=== PATIENT | female | born 2000 | race African-American/Black ===

== ENCOUNTER 2022-11-21 12:01 | Inpatient (IN) ==
--- NOTE | 2022-11-21 12:03 | Emergency Department Note ---
Impression & Plan Depression with suicidal ideation, History of bipolar disorder ED Provider Note NAME: WADE BRIAN AGE: 22 SEX: F : 2000 ARRIVES VIA: Ambulance INFORMANT: Patient, ED PROVIDER(S): Napoleon Kohler MD CHIEF COMPLAINT: Suicidal ideation, depression MEDICAL DECISION MAKING: Patient presents due to concern for suicidal ideation with associated depression has known history of bipolar disorder. Patient states that she feels very tired and had contemplated overdosing on her own medications. Blood work is obtained. The patient was seen medically cleared seen evaluated by psych rn case management and referrals were made. Patient was excepted to 3 S. Prior /Outside records reviewed: Patient did have a gastrointestinal visit with Ruby Taylor PA-C & . Case from February 2022 PDMP was reviewed and showed no controlled substances. Differential diagnosis: Mood disorder, infection, hypoglycemia, electrolyte abnormalities, cardiac sources, intracerebral event, toxicologic, trauma, neurologic, as well as other pathologies. HPI: Patient presents with suicidal ideation. The patient states that she believes this may have been sparked by some visual hallucinations as she is seeing things in her periphery. Nothing that she can describe. Patient denies any auditory hallucinations. Patient has had SI with a plan to overdose on her home meds. The patient did take her medications this morning but denies any inappropriate taking them. Patient does feel tired but states that her sleep has been normal. The patient's appetite has been slightly decreased but has a known history of eating disorder but states this has been improving. Patient is a [employer] student she states that her classes are going well. Patient did not feel safe this home this morning and thus called crisis from her car. Patient denies any chest pains or shortness of breath. Patient denies any alcohol or tobacco use. No drug use. Patient has no access to guns or weapons. The patient has never been inpatient before but would consider inpatient treatment PAST MEDICAL HISTORY: See Below PAST SURGICAL HISTORY: See Below SOCIAL HISTORY: See Below HOME MEDICATIONS: See Below ALLERGIES: See Below VITALS: See Below PHYSICAL EXAMINATION: GENERAL: NAD, wearing a mask, non-toxic. Wearing glasses EYE EXAM: Normal conjunctiva. PERRL, no anisocoria and EOM's grossly intact w/o pain. NECK: Supple, no nuchal rigidity, no adenopathy, non-tender. No signs of meningismus. FROM of the neck with good chin to chest and neck extension. No stridor. LUNGS: Clear to auscultation. Normal chest wall mechanics. HEART: NSR, no MRG. ABDOMEN: Abdomen soft, non-tender, normo-active bowel sounds, no masses, no rebound or guarding. BACK: No CVA TTP. SKIN: No rashes and no bruising. UPPER EXTREMITIES: Upper extremities are grossly normal. LOWER EXTREMITIES: Grossly normal, no edema. NEURO EXAM: A&O x3, cranial nerves II-XII grossly intact, normal speech, moves all 4 extremities. Psych: Positive SI, negative HI, positive visual hallucinations, negative auditory hallucinations. Past Med/Surg History Medical History Bipolar disorder Eating disorder Surgical History S/P tonsillectomy Social History Smoking Status: Never smoker Hx Substance Use: Yes ([facility] [place]) Preferred Language: Vietnamese Feels Safe at Home: Yes Gender Identity: Female Allergies Allergies Allergy/AdvReac Type Severity Reaction Status Date / Time No Known Allergies Allergy Verified 10/03/22 03:09 Home Meds Home Medications Medication Instructions Recorded Confirmed buspirone 30 mg tablet 30 mg PO BID 02/22/22 11/21/22 levonorgestrel 17.5 mcg/24 hrs 17.5 mcg intrauterine CONTINOUS 02/22/22 11/21/22 (5yrs) 19.5mg intrauterine device (Kyleena) sumatriptan succinate 25 mg tablet 25 mg PO Q2H PRN Migraine Headache 02/22/22 11/21/22 (Imitrex) lamotrigine 200 mg tablet 200 mg PO BID 10/03/22 11/21/22 Lexapro 10 mg PO DAILY 11/21/22 11/21/22 Results & Data (ED) Vital Signs Vital Signs - 24 hr 11/21/22 12:17 Temperature 36.8 C Temperature Source Oral Pulse Rate 100 H Respiratory Rate 20 Respiratory Effort / Characteristics Non-Labored Respiratory Depth Normal Blood Pressure 138/89 Blood Pressure Mean 105 Pulse Oximetry 98 Oxygen Delivery Method Room Air Sepsis Recent Fever Within 48 Hours No Sepsis New/Unexplained Change in Mental Status N/A Sepsis Action Taken by Nursing No Action Required Home Medications Current Medication List: was personally reviewed by me Laboratory Data Attestation: I reviewed the patient's lab results. 11/21/22 12:20 11/21/22 12:20 Lab Results 11/21/22 11/21/22 11/21/22 Range/Units 12:20 12:20 12:20 WBC 9.16 (4.8-10.8) K/ul RBC 4.76 (4.20-5.40) M/uL Hgb 13.8 (12.0-16.0) g/dl Hct 41.8 (37.0-47.0) % MCV 87.8 (80.0-100.0) fL MCH 29.0 (25.0-34.0) pg MCHC 33.0 (32.0-36.0) g/dL RDW Std Deviation 41.9 (36.4-46.3) fL RDW Coeff of Brissa 12.9 (11.5-14.5) % Plt Count 283 (130-400) K/uL MPV 10.0 (9.4-12.4) fL Immature Gran % (Auto) 0.3 % Neut % (Auto) 72.5 % Lymph % (Auto) 19.1 % Chase % (Auto) 6.8 % Eos % (Auto) 0.9 % Baso % (Auto) 0.4 % Neut # (Auto) 6.64 H (1.40-6.50) K/uL Lymph # (Auto) 1.75 (1.2-3.4) K/uL Chase # (Auto) 0.62 H (0.11-0.59) K/uL Eos # (Auto) 0.08 (0-0.50) K/uL Baso # (Auto) 0.04 (0-0.2) K/uL Immature Gran # (Auto) 0.03 (0.01-0.20) K/uL Sodium 140 (136-145) mmol/L Potassium 3.6 (3.5-5.1) mmol/L Chloride 106 (98-107) mmol/L Carbon Dioxide 28 (21-32) mmol/L Anion Gap 6 (3-11) BUN 8 (6-23) mg/dl Creatinine 0.71 (0.6-1.2) mg/dl Est Cr Clr Drug Dosing 100.9 ml/min Est GFR ( Amer) 140.1 ml/min Est GFR (Non-Af Amer) 120.9 ml/min BUN/Creatinine Ratio 11.3 (10-20) Glucose 81 (70-99(Fasting)) mg/dl Calcium 9.8 (8.5-10.1) mg/dl Total Bilirubin 0.8 (0.2-1.0) mg/dl AST 18 (13-39) U/L ALT 11 (7-52) U/L Alkaline Phosphatase 66 (34-104) U/L Total Protein 8.3 (6.0-8.3) gm/dl Albumin 4.8 (3.4-5.0) gm/dl Globulin 3.5 (2.5-4.0) gm/dl Albumin/Globulin Ratio 1.4 (0.9-2) TSH 2.232 (0.300-4.500) uIu/ml Urine Color Urine Appearance (Clear) Urine pH (4.5-7.5) Ur Specific Stanley (1.000-1.030) Urine Protein (Negative) Urine Glucose (UA) (Negative) Urine Ketones (Negative) Urine Blood (Negative) Urine Nitrite (Negative) Urine Bilirubin (Negative) Urine Urobilinogen (Negative) Ur Leukocyte Esterase (Negative) Urine WBC (Auto) (0-5) /hpf Urine RBC (Auto) (0-4) /hpf U Hyaline Cast (Auto) (0-5) /lpf U Epithel Cells (Auto) (0-5) /lpf Urine Bacteria (Auto) (Negative) Urine Test (Negative) Salicylates (3.0-30) mg/dl Urine Opiates Screen (Neg) Ur Methadone, Qual (Neg) Acetaminophen (10-30) ug/ml Urine Barbiturates (Neg) Ur Phencyclidine (PCP) (Neg) U Amphetamin/Meth Scrn (Neg) MDMA (Ecstasy) Screen (Neg) U Benzodiazepines Scrn (Neg) Ur Cocaine Metabolite (Neg) U Marijuana (THC) Screen (Neg) Ethyl Alcohol mg/dL (<10.0) mg/dl SARS-CoV-2, RNA, NAAT (NEGATIVE) 11/21/22 11/21/22 11/21/22 Range/Units 12:20 12:20 12:20 WBC (4.8-10.8) K/ul RBC (4.20-5.40) M/uL Hgb (12.0-16.0) g/dl Hct (37.0-47.0) % MCV (80.0-100.0) fL MCH (25.0-34.0) pg MCHC (32.0-36.0) g/dL RDW Std Deviation (36.4-46.3) fL RDW Coeff of Brissa (11.5-14.5) % Plt Count (130-400) K/uL MPV (9.4-12.4) fL Immature Gran % (Auto) % Neut % (Auto) % Lymph % (Auto) % Chase % (Auto) % Eos % (Auto) % Baso % (Auto) % Neut # (Auto) (1.40-6.50) K/uL Lymph # (Auto) (1.2-3.4) K/uL Chase # (Auto) (0.11-0.59) K/uL Eos # (Auto) (0-0.50) K/uL Baso # (Auto) (0-0.2) K/uL Immature Gran # (Auto) (0.01-0.20) K/uL Sodium (136-145) mmol/L Potassium (3.5-5.1) mmol/L Chloride (98-107) mmol/L Carbon Dioxide (21-32) mmol/L Anion Gap (3-11) BUN (6-23) mg/dl Creatinine (0.6-1.2) mg/dl Est Cr Clr Drug Dosing ml/min Est GFR ( Amer) ml/min Est GFR (Non-Af Amer) ml/min BUN/Creatinine Ratio (10-20) Glucose (70-99(Fasting)) mg/dl Calcium (8.5-10.1) mg/dl Total Bilirubin (0.2-1.0) mg/dl AST (13-39) U/L ALT (7-52) U/L Alkaline Phosphatase (34-104) U/L Total Protein (6.0-8.3) gm/dl Albumin (3.4-5.0) gm/dl Globulin (2.5-4.0) gm/dl Albumin/Globulin Ratio (0.9-2) TSH (0.300-4.500) uIu/ml Urine Color Yellow Urine Appearance Clear (Clear) Urine pH 8.0 H (4.5-7.5) Ur Specific Stanley 1.007 (1.000-1.030) Urine Protein Negative (Negative) Urine Glucose (UA) Negative (Negative) Urine Ketones Negative (Negative) Urine Blood Trace H (Negative) Urine Nitrite Negative (Negative) Urine Bilirubin Negative (Negative) Urine Urobilinogen Negative (Negative) Ur Leukocyte Esterase Trace H (Negative) Urine WBC (Auto) 1-5 (0-5) /hpf Urine RBC (Auto) 0-4 (0-4) /hpf U Hyaline Cast (Auto) 1-5 (0-5) /lpf U Epithel Cells (Auto) >30 H (0-5) /lpf Urine Bacteria (Auto) 1+ H (Negative) Urine Test (Negative) Salicylates < 3.0 L (3.0-30) mg/dl Urine Opiates Screen (Neg) Ur Methadone, Qual (Neg) Acetaminophen < 3 L (10-30) ug/ml Urine Barbiturates (Neg) Ur Phencyclidine (PCP) (Neg) U Amphetamin/Meth Scrn (Neg) MDMA (Ecstasy) Screen (Neg) U Benzodiazepines Scrn (Neg) Ur Cocaine Metabolite (Neg) U Marijuana (THC) Screen (Neg) Ethyl Alcohol mg/dL < 10.0 (<10.0) mg/dl SARS-CoV-2, RNA, NAAT (NEGATIVE) 11/21/22 11/21/22 11/21/22 Range/Units 12:20 12:20 12:31 WBC (4.8-10.8) K/ul RBC (4.20-5.40) M/uL Hgb (12.0-16.0) g/dl Hct (37.0-47.0) % MCV (80.0-100.0) fL MCH (25.0-34.0) pg MCHC (32.0-36.0) g/dL RDW Std Deviation (36.4-46.3) fL RDW Coeff of Brissa (11.5-14.5) % Plt Count (130-400) K/uL MPV (9.4-12.4) fL Immature Gran % (Auto) % Neut % (Auto) % Lymph % (Auto) % Chase % (Auto) % Eos % (Auto) % Baso % (Auto) % Neut # (Auto) (1.40-6.50) K/uL Lymph # (Auto) (1.2-3.4) K/uL Chase # (Auto) (0.11-0.59) K/uL Eos # (Auto) (0-0.50) K/uL Baso # (Auto) (0-0.2) K/uL Immature Gran # (Auto) (0.01-0.20) K/uL Sodium (136-145) mmol/L Potassium (3.5-5.1) mmol/L Chloride (98-107) mmol/L Carbon Dioxide (21-32) mmol/L Anion Gap (3-11) BUN (6-23) mg/dl Creatinine (0.6-1.2) mg/dl Est Cr Clr Drug Dosing ml/min Est GFR ( Amer) ml/min Est GFR (Non-Af Amer) ml/min BUN/Creatinine Ratio (10-20) Glucose (70-99(Fasting)) mg/dl Calcium (8.5-10.1) mg/dl Total Bilirubin (0.2-1.0) mg/dl AST (13-39) U/L ALT (7-52) U/L Alkaline Phosphatase (34-104) U/L Total Protein (6.0-8.3) gm/dl Albumin (3.4-5.0) gm/dl Globulin (2.5-4.0) gm/dl Albumin/Globulin Ratio (0.9-2) TSH (0.300-4.500) uIu/ml Urine Color Urine Appearance (Clear) Urine pH (4.5-7.5) Ur Specific Stanley (1.000-1.030) Urine Protein (Negative) Urine Glucose (UA) (Negative) Urine Ketones (Negative) Urine Blood (Negative) Urine Nitrite (Negative) Urine Bilirubin (Negative) Urine Urobilinogen (Negative) Ur Leukocyte Esterase (Negative) Urine WBC (Auto) (0-5) /hpf Urine RBC (Auto) (0-4) /hpf U Hyaline Cast (Auto) (0-5) /lpf U Epithel Cells (Auto) (0-5) /lpf Urine Bacteria (Auto) (Negative) Urine Test Negative (Negative) Salicylates (3.0-30) mg/dl Urine Opiates Screen Neg (Neg) Ur Methadone, Qual Neg (Neg) Acetaminophen (10-30) ug/ml Urine Barbiturates Neg (Neg) Ur Phencyclidine (PCP) Neg (Neg) U Amphetamin/Meth Scrn Neg (Neg) MDMA (Ecstasy) Screen Neg (Neg) U Benzodiazepines Scrn Neg (Neg) Ur Cocaine Metabolite Neg (Neg) U Marijuana (THC) Screen Pos H (Neg) Ethyl Alcohol mg/dL (<10.0) mg/dl SARS-CoV-2, RNA, NAAT NEGATIVE (NEGATIVE) Discharge Plan Visit Data Chief Complaint: Mental Health Evaluation Stated Complaint: [facility] ED Provider: Napoleon Kohler Discharge Problem: Depression with suicidal ideation, History of bipolar disorder Forms Stand Alone Forms: [facility], Suicide Prevention Resources Prescriptions Prescriptions: No Action buspirone 30 mg tablet 30 mg PO BID sumatriptan succinate [Imitrex] 25 mg tablet 25 mg PO Q2H PRN (Reason: Migraine Headache) Rx Instructions: do not exceed 8 doses per 24 hrs Kyleena 17.5 mcg/24 hrs (5 yrs) 19.5 mg intrauterine device 17.5 mcg intrauterine CONTINOUS lamotrigine 200 mg tablet 200 mg PO BID Lexapro 10 mg PO DAILY Referrals Referrals: Daniella Poon [Primary Care Provider] -
[2022-11-21 12:51] LABS: Pregnancy Test, Urine Negative (Negative)
[2022-11-21 12:54] LABS: Basophils # (auto) 0.04 K/uL (0-0.2); Basophils % (auto) 0.4 %; Eosinophils # (auto) 0.08 K/uL (0-0.50); Eosinophils % (auto) 0.9 %; Hematocrit (blood only) 41.8 % (37.0-47.0); Hemoglobin 13.8 g/dl (12.0-16.0); Immature Granulocytes # (auto) 0.03 K/uL (0.01-0.20); Immature Granulocytes % (auto) 0.3 %; Lymphocytes # (auto) 1.75 K/uL (1.2-3.4); Lymphocytes % (auto) 19.1 %; Mean Corpuscular Volume 87.8 fL (80.0-100.0); Monocytes # (auto) 0.62 K/uL (0.11-0.59); Monocytes % (auto) 6.8 %; Neutrophils # (auto) 6.64 K/uL (1.40-6.50); Neutrophils % (auto) 72.5 %; Platelet Count 283 K/uL (130-400); RDW Coefficient of Variation 12.9 % (11.5-14.5); RDW Standard Deviation 41.9 fL (36.4-46.3); Red Blood Count 4.76 M/uL (4.20-5.40); White Blood Count 9.16 K/ul (4.8-10.8)
[2022-11-21 12:59] LABS: Appearance Urine Clear (Clear); Bacteria Urine Automated 1+ (Negative); Bilirubin Urine Negative (Negative); Blood Urine Trace (Negative); Color Urine Yellow; Epithelial Cell Urine Auto >30 /lpf (0-5); Glucose Urine UA Negative (Negative); Ketones Urine Negative (Negative); Leukocyte Esterase Urine Trace (Negative); Nitrite Urine Negative (Negative); Protein Urine Negative (Negative); RBC Urine Automated 0-4 /hpf (0-4); Specific Gravity Urine 1.007 (1.000-1.030); Urobilinogen Urine Negative (Negative)
[2022-11-21 13:04] LABS: Acetaminophen < 3 ug/ml (10-30); Salicylate < 3.0 mg/dl (3.0-30)
[2022-11-21 13:14] LABS: Albumin Globulin Ratio 1.4 (0.9-2); Albumin Level 4.8 gm/dl (3.4-5.0); BUN Creatinine Ratio 11.3 (10-20); Bilirubin,Total 0.8 mg/dl (0.2-1.0); Calcium 9.8 mg/dl (8.5-10.1); Creatinine Clr Calc Pharmacy 100.9 ml/min; Est GFR (African American) 140.1 ml/min; Est GFR (Non-African American) 120.9 ml/min; Globulin 3.5 gm/dl (2.5-4.0); Potassium 3.6 mmol/L (3.5-5.1); Total Protein 8.3 gm/dl (6.0-8.3)
[2022-11-21 13:23] LABS: Amphetamines+Metham, Urine Neg (Neg); Barbiturates, Urine Neg (Neg); Benzodiazepine, Urine Neg (Neg); Cocaine, Urine Neg (Neg); MDMA (Ecstacy), Urine Neg (Neg); Methadone, Urine Neg (Neg); Opiate, Urine Neg (Neg); Phencyclidine, Urine Neg (Neg)
[2022-11-21] MEDS ORDERED: hydrOXYzine HCl 25 MG TAB PO PRN ×2 (15:26)
[2022-11-21] MEDS ORDERED: ALUMINUM/MAGNESIUM SUSP 30 ML UDC PO PRN (15:26)
[2022-11-21] MEDS ORDERED: SODIUM CHLORIDE 0.65% NA SOLN 45 ML (OCEAN) PRN (15:26)
[2022-11-21] MEDS ORDERED: ACETAMINOPHEN 325 MG TAB PO PRN (15:26)
[2022-11-21] MEDS ORDERED: MAGNESIUM HYDROXIDE SUSP 30 ML UDC PO PRN (15:26)
[2022-11-21] MEDS ORDERED: BISMUTH SUBSALICYLATE LIQD 236 ML PO PRN (15:26)
[2022-11-21] MEDS: lamoTRIgine 100 MG TAB PO SCH (20:55)
[2022-11-21] MEDS: busPIRone 15 MG TAB PO SCH (20:55)
[2022-11-22] MEDS: lamoTRIgine 100 MG TAB PO SCH ×2 (08:42→21:05)
[2022-11-22] MEDS: busPIRone 15 MG TAB PO SCH ×2 (08:42→21:04)
[2022-11-22] MEDS ORDERED: ESCITALOPRAM OXALATE 10 MG TAB PO SCH (09:00)
--- NOTE | 2022-11-22 11:48 | History & Physical ---
Date of Service November 22, 2022 Impression / Recommendations Nancy Lira is a 22 year old woman and [employer] student with a history of BPAD, OCD, NOHEMY and depression who was admitted for worsening depression, visual hallucinations and SI with plan of overdosing. Diagnostically consistent with bipolar affective disorder, current depressive episode as well as OCD and NOHEMY by history, possible cannabis use vs migraines contributing to visual hallucinations. She will have outpatient testing this spring for possibility of processing issues and testing for autism spectrum disorder. The patient is deemed in need of psychiatric hospitalization for diagnostic clarification, safety and stabilization, medication management and development of further coping skills. Discussed medication treatment options in detail including [place], SSRI dose adjustments, lamictal, and antipsychotic augmentation. Discussed risks, benefits and alternatives. She would like to continue with her current medications for now. Reviewed side effects for her current medications including but not limited to: toxic rash with lamictal, dizziness with Buspar, and GI, JIMENES, sexual side effects, and counseled on black box warning of potential for emergence of or increased SI and need to let staff know should this occur or should they feel unsafe. Also discussed importance of seeking emergency care following discharge if this side effect occurs in the future. MNPR due to sensory issues, severe OCD (1) Bipolar affective disorder, depressed, severe: (2) Obsessive-compulsive disorder with good or fair insight: (3) Generalized anxiety disorder with panic attacks: (4) Visual hallucinations: Plan 11/22/2022: The patient was admitted to the [facility] ([facility] mental health unit) on q15 min checks (behavioral with suicide precautions) for safety. The patient will participate in group, recreational, and milieu therapies and will be offered additional individual and family sessions as clinically appropriate. -Continue lexapro, lamictal and Buspar -Mood Disorder Questionnaire -Will reach out to Babita Lockhart for coordination of care Inventory Assets Strengths: supportive relationships, willing to get treatment, outpatient providers, resilient Needs: safety and stabilization, medication adjustment, additional coping skills, increased outpatient services Suicide Risk Level Suicide Risk Level: High-Moderate (q15 min suicide checks) (severe depression with SI with plan prior to admission but feels safe in the hospital, able to safety contract and agrees to let nursing/staff know should they develop plan, intent or feel unable to remain safe.) Suicide Risk Level Comments: Risk Factors Assessment Male: No : No Do You Have Access To A Gun?: No Health Problems: No Mental Health Diagnoses: Yes Substance Use Disorders: No Previous Attempt: No Family History of Suicide: No Previous Psychiatric Hospitalization: No Protective Factors Assessment Employed: No Stable Relationships: Yes Supportive Family: Yes Good Rapport with Provider: Yes Psychiatric History Identifying Data WADE BRIAN is a 22-year-old woman and [employer] student who currently lives in [place] alone in an apartment, has a history of BPAD II, OCD, anxiety, and was admitted on 11/21/22 15:27 on a 201 voluntary commitment for worsening depression and SI to overdose or wreck her car. Chief Complaint "Yesterday I didn't feel safe at home with myself". History of Present Illness She presents for psychiatric admission for worsening depression and SI with plans of overdosing in the context of multiple psychosocial stressors including legal hearing, "focusing on being normal" takes up a lot of her stress and time. She had been doing well but about one month ago got more depressed and then started to see visual hallucinations this past week and this was really upsetting as her mood spiraled into depression "so quickly" and that this is a "really sad setback". Has been feeling very hopeless. She feels she is always at a high level of anxiety with ruminations and her OCD makes her easily get o verstimulating and can cause her to focus on things needing to be "just right". She has chronic stomach pain which she attributes to anxiety. She's doing well academically but course work can be stressful. She feels like before a manic or depressive spell she often sees things in the corner of her vision and in the past heard country music on repeat as an auditory hallucination prior to a manic episode. She hasn't noticed any correlation with her migraines. History of trauma but no PTSD symptoms. Further recent history reviewed and confirmed as documented by ED psych CM on 11/21/22: "The patient presents with suicidal ideation with a plan to overdose on her medications (which she reports she is compliant with taking). She isnt able to identify any new stressors other that school, which has been going well for her. The patient reports depressive symptoms of anergia, anhedonia, crying spells and disturbance in sleep (reports 8-9 hours per night but awakens during the night and she identifies this as a sign her mental health has been worsening). The patient reports a history of eating disorder and is currently receiving therapy for this through Alethea Reed at [facility] (which also manages her medications by Babita Lockhart). The patient denies any manic symptoms and feels this is under control and that she is in more of a depressive state at this time (history of Bipolar, OCD, PTSD and anxiety). The patient reports less often than daily anxiety / panic attacks that can be crippling, where she needs to lie on the floor to ground herself (currently at 9 in the ER). The patient reports she has been having visual hallucinations of objects in her peripheral vision but denies any other hallucinations or paranoid thinking. The patient is not a smoker and admits to daily marijuana use but denies other drug use, aggressive behaviors, homicidal ideations or access to weapons. The patient is willing for treatment at this time and medical clearance was explained. Patient arrived by [facility] and report received from Gennaro (Central Office Supervisor). He reports the patient called [facility] reporting she had suicidal ideations with a plan to overdose on her medications. Gennaro reports upon their arrival, the patient was sitting in her car to keep herself safe since her medications were in the residence. Gennaro reports the patient reported feeling down and crying uncontrollably recently with diagnoses of Bipolar, OCD and anxiety. He finally reports the patient sees a therapist weekly but has never been inpatient for mental health treatment." She is currently prescribed psychiatric medications of lexapro 10mg qd (about 4 months to help with anxiety and this has helped), Buspar 30mg BID (helps with anxiety), Lamictal 200mg BID (for about one year). History of multiple prior episodes of kendal, most recently January 2022 lasting about 4 days, prior to that had episode of kendal that lasted almost 3 months. Past Psychiatric History Current Psychiatric Diagnosis: BPAD type II, OCD, NOHEMY, restrictive eating disorder Outpatient Services: Therapy with Alethea Reed at [facility]; psychiatric medications through M[facility] Moreland [facility] Previous Psych Admissions: none Do You Have Access To A Gun?: No History of Previous Suicide Attempt: No Past Medication Trials: hx sertraline (caused episode of kendal), amitriptyline (in high school for mood and migraines) Past Head Trauma/Neuro History History of Concussion/Seizure: Yes (concussion in 8th grade, no LOC) Allergies Allergy/AdvReac Type Severity Reaction Status Date / Time No Known Allergies Allergy Verified 11/22/22 12:15 Home Medications Medication Instructions Recorded Confirmed Type buspirone 30 mg tablet 30 mg PO BID 02/22/22 11/21/22 History levonorgestrel 17.5 mcg/24 hrs 17.5 mcg intrauterine CONTINOUS 02/22/22 11/21/22 History (5yrs) 19.5mg intrauterine device (Kyleena) sumatriptan succinate 25 mg tablet 25 mg PO Q2H PRN Migraine Headache 02/22/22 11/21/22 History (Imitrex) lamotrigine 200 mg tablet 200 mg PO BID 10/03/22 11/21/22 History Lexapro 10 mg PO DAILY 11/21/22 11/21/22 History Family History Family History of: Other-List under Comment and Bipolar (mom and maternal grandfather) Family Mental Health History Comment: Eating disorder, anorexia - maternal aunt Alcohol History Hx of Alcohol Use Over the Past 12 Months: Yes AUDIT Total Score: 2 Will drink socially, maximum 3 drinks, only a few times per month Smoking Use Have You Smoked or Used Tobacco Products in the Last 30 Days: No Smoking Status: Never smoker Substance History Hx of Prescription Med Misuse Over the Past 12 Months: No Hx of Over the Counter Med Misuse Over the Past 12 Months: No Hx of Inhalent Misuse Over the Past 12 Months: No Hx of Organic Substance Use Over the Past 12 Months: Yes (Marijuana) Hx of Illegal Substances/Street Drug Use Over Past 12 Months: No Problems as a Result of Past Substance Use: None Identified Cannabis use throughout the day to help with anxiety, she finds it helps her "get the courage to go", helps with focus, helps her exercise; doesn't like that sometimes it makes her tired Personal History Living Arrangements: Apartment Childhood: No contact her biological father. Her father is her mother's spouse and he adopted her at age 8. 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) Marital Status: Single (but relationship with bf for 1 year) Number Of Children: 0 Beliefs That Will Affect Care: None Current Legal Problems: Yes (she and bf found hurt at [place] and now charged for theft) Legal Problems Comment: has collections attorney and hearing to be rescheduled; her case has been withdrawn Hx Legal Problems: No Hx Traumatic Life Events: Yes Patient History Medical History Bipolar disorder Eating disorder Surgical History S/P tonsillectomy Social History Smoking Status: Never smoker Hx Substance Use: Yes (Medical Okmaria fernanda) Preferred Language: Czech Communication Ability: Effective Planning Management It Specialist Required: No Beliefs That Will Affect Care: None Feels Safe at Home: Yes Gender Identity: Female Assistive Devices: Glasses Review of Systems Review of Systems: All systems reviewed & are unremarkable except as noted in HPI & below (migraine, stomach hurts (chronic)) Physical Exam Psychiatric: Orientation: alert and oriented x 3 Apperance: appropriately dressed and appropriately groomed Eye Contact: good eye contact Motor Behavior: no abnormal motor movements Speech: normal rate/rhythm/volume of speech Affect: + depressed affect, + anxious affect and + tearful affect Mood: + depressed mood and + anxious mood Thought Process: goal directed thought process Thought Content: reality based without delusions Suicidal Thoughts: denies suicidal intent; + reports suicidal thoughts (intermittent thoughts) and + reports suicidal plan (none for here in the hospital, prior to admission ) Homicidal Thoughts: denies homicidal thoughts Hallucinations: + visual hallucinations (intermittent, non-specific flashes in periphery); no auditory hallucinations Cognition: recent memory grossly intact, remote memory grossly intact, attention grossly intact and language grossly intact Estimated Intelligence: consistent with education level Insight: + fair insight Judgment: + fair judgement Vital Signs (Past 24 Hours): Last Vital Signs Temp 36.9 C 11/22/22 06:30 Pulse 87 11/22/22 06:30 Resp 16 11/22/22 06:30 BP 118/78 11/22/22 06:30 Pulse Ox 98 11/21/22 12:17 O2 Del Method 11/21/22 16:48 Exam Statement: A physical exam was performed in the ED by Dr. Kohler for the purposes of medical clearance. I accept that physical as correct and adequate for the purposes of the inpatient physical exam. Results & Data ([facility]) Laboratory Results Laboratory Results - last 24 hr 11/21/22 11/21/22 11/21/22 12:20 12:20 12:20 WBC 9.16 RBC 4.76 Hgb 13.8 Hct 41.8 MCV 87.8 MCH 29.0 MCHC 33.0 RDW Std Deviation 41.9 RDW Coeff of Brissa 12.9 Plt Count 283 MPV 10.0 Immature Gran % (Auto) 0.3 Neut % (Auto) 72.5 Lymph % (Auto) 19.1 [place] % (Auto) 6.8 Eos % (Auto) 0.9 Baso % (Auto) 0.4 Neut # (Auto) 6.64 H Lymph # (Auto) 1.75 [place] # (Auto) 0.62 H Eos # (Auto) 0.08 Baso # (Auto) 0.04 Immature Gran # (Auto) 0.03 Sodium 140 Potassium 3.6 Chloride 106 Carbon Dioxide 28 Anion Gap 6 BUN 8 Creatinine 0.71 Est Cr Clr Drug Dosing 100.9 Est GFR ( Amer) 140.1 Est GFR (Non-Af Amer) 120.9 BUN/Creatinine Ratio 11.3 Glucose 81 Calcium 9.8 Total Bilirubin 0.8 AST 18 ALT 11 Alkaline Phosphatase 66 Total Protein 8.3 Albumin 4.8 Globulin 3.5 Albumin/Globulin Ratio 1.4 TSH 2.232 Urine Color Urine Appearance Urine pH Ur Specific [place] Urine Protein Urine Glucose (UA) Urine Ketones Urine Blood Urine Nitrite Urine Bilirubin Urine Urobilinogen Ur Leukocyte Esterase Urine WBC (Auto) Urine RBC (Auto) U Hyaline Cast (Auto) U Epithel Cells (Auto) Urine Bacteria (Auto) Urine Test Salicylates Urine Opiates Screen Ur Methadone, Qual Acetaminophen Urine Barbiturates Ur Phencyclidine (PCP) U Amphetamin/Meth Scrn MDMA (Ecstasy) Screen U Benzodiazepines Scrn Ur Cocaine Metabolite U Marijuana (THC) Screen U Marijuana THC Carboxy Drug Screen Comment Ethyl Alcohol mg/dL SARS-CoV-2, RNA, NAAT 11/21/22 11/21/22 11/21/22 12:20 12:20 12:20 WBC RBC Hgb Hct MCV MCH MCHC RDW Std Deviation RDW Coeff of Brissa Plt Count MPV Immature Gran % (Auto) Neut % (Auto) Lymph % (Auto) [place] % (Auto) Eos % (Auto) Baso % (Auto) Neut # (Auto) Lymph # (Auto) [place] # (Auto) Eos # (Auto) Baso # (Auto) Immature Gran # (Auto) Sodium Potassium Chloride Carbon Dioxide Anion Gap BUN Creatinine Est Cr Clr Drug Dosing Est GFR ( Amer) Est GFR (Non-Af Amer) BUN/Creatinine Ratio Glucose Calcium Total Bilirubin AST ALT Alkaline Phosphatase Total Protein Albumin Globulin Albumin/Globulin Ratio TSH Urine Color Yellow Urine Appearance Clear Urine pH 8.0 H Ur Specific [place] 1.007 Urine Protein Negative Urine Glucose (UA) Negative Urine Ketones Negative Urine Blood Trace H Urine Nitrite Negative Urine Bilirubin Negative Urine Urobilinogen Negative Ur Leukocyte Esterase Trace H Urine WBC (Auto) 1-5 Urine RBC (Auto) 0-4 U Hyaline Cast (Auto) 1-5 U Epithel Cells (Auto) >30 H Urine Bacteria (Auto) 1+ H Urine Test Salicylates < 3.0 L Urine Opiates Screen Ur Methadone, Qual Acetaminophen < 3 L Urine Barbiturates Ur Phencyclidine (PCP) U Amphetamin/Meth Scrn MDMA (Ecstasy) Screen U Benzodiazepines Scrn Ur Cocaine Metabolite U Marijuana (THC) Screen U Marijuana THC Carboxy Drug Screen Comment Ethyl Alcohol mg/dL < 10.0 SARS-CoV-2, RNA, NAAT 11/21/22 11/21/22 11/21/22 12:20 12:20 12:20 WBC RBC Hgb Hct MCV MCH MCHC RDW Std Deviation RDW Coeff of Brissa Plt Count MPV Immature Gran % (Auto) Neut % (Auto) Lymph % (Auto) [place] % (Auto) Eos % (Auto) Baso % (Auto) Neut # (Auto) Lymph # (Auto) [place] # (Auto) Eos # (Auto) Baso # (Auto) Immature Gran # (Auto) Sodium Potassium Chloride Carbon Dioxide Anion Gap BUN Creatinine Est Cr Clr Drug Dosing Est GFR ( Amer) Est GFR (Non-Af Amer) BUN/Creatinine Ratio Glucose Calcium Total Bilirubin AST ALT Alkaline Phosphatase Total Protein Albumin Globulin Albumin/Globulin Ratio TSH Urine Color Urine Appearance Urine pH Ur Specific [place] Urine Protein Urine Glucose (UA) Urine Ketones Urine Blood Urine Nitrite Urine Bilirubin Urine Urobilinogen Ur Leukocyte Esterase Urine WBC (Auto) Urine RBC (Auto) U Hyaline Cast (Auto) U Epithel Cells (Auto) Urine Bacteria (Auto) Urine Test Negative Salicylates Urine Opiates Screen Neg Ur Methadone, Qual Neg Acetaminophen Urine Barbiturates Neg Ur Phencyclidine (PCP) Neg U Amphetamin/Meth Scrn Neg MDMA (Ecstasy) Screen Neg U Benzodiazepines Scrn Neg Ur Cocaine Metabolite Neg U Marijuana (THC) Screen Pos H U Marijuana THC Carboxy Pending Drug Screen Comment Pending Ethyl Alcohol mg/dL SARS-CoV-2, RNA, NAAT 11/21/22 12:31 WBC RBC Hgb Hct MCV MCH MCHC RDW Std Deviation RDW Coeff of Brissa Plt Count MPV Immature Gran % (Auto) Neut % (Auto) Lymph % (Auto) [place] % (Auto) Eos % (Auto) Baso % (Auto) Neut # (Auto) Lymph # (Auto) [place] # (Auto) Eos # (Auto) Baso # (Auto) Immature Gran # (Auto) Sodium Potassium Chloride Carbon Dioxide Anion Gap BUN Creatinine Est Cr Clr Drug Dosing Est GFR ( Amer) Est GFR (Non-Af Amer) BUN/Creatinine Ratio Glucose Calcium Total Bilirubin AST ALT Alkaline Phosphatase Total Protein Albumin Globulin Albumin/Globulin Ratio TSH Urine Color Urine Appearance Urine pH Ur Specific [place] Urine Protein Urine Glucose (UA) Urine Ketones Urine Blood Urine Nitrite Urine Bilirubin Urine Urobilinogen Ur Leukocyte Esterase Urine WBC (Auto) Urine RBC (Auto) U Hyaline Cast (Auto) U Epithel Cells (Auto) Urine Bacteria (Auto) Urine Test Salicylates Urine Opiates Screen Ur Methadone, Qual Acetaminophen Urine Barbiturates Ur Phencyclidine (PCP) U Amphetamin/Meth Scrn MDMA (Ecstasy) Screen U Benzodiazepines Scrn Ur Cocaine Metabolite U Marijuana (THC) Screen U Marijuana THC Carboxy Drug Screen Comment Ethyl Alcohol mg/dL SARS-CoV-2, RNA, NAAT NEGATIVE Current Inpatient Medications Current Inpatient Medications: Current Inpatient Medications Acetaminophen (Acetaminophen 325 Mg Tab) 650 mg PO Q4H PRN PRN Reason: Headache or Minor Fever Stop: 12/21/22 15:25 Al Hydrox/Mg Hydrox/Simethicone (Aluminum/Magnesium Susp 30 Ml Udc) 30 ml PO Q4 H PRN PRN Reason: GI Upset Stop: 12/21/22 15:25 Bismuth Subsalicylate (Bismuth Subsalicylate Liqd 236 Ml) 15 ml PO PRN PRN PRN Reason: Loose Stool Stop: 12/21/22 15:25 Buspirone HCl (Buspirone 15 Mg Tab) 30 mg PO BID DURAN Stop: 12/21/22 20:59 Last Admin: 11/22/22 08:42 Dose: 30 mg Hydroxyzine HCl (Hydroxyzine Hcl 25 Mg Tab) 50 mg PO HSZ PRN PRN Reason: Insomnia Stop: 12/21/22 15:25 Hydroxyzine HCl (Hydroxyzine Hcl 25 Mg Tab) 25 mg PO Q4H PRN PRN Reason: Anxiety Stop: 12/21/22 15:25 Lamotrigine (Lamotrigine 100 Mg Tab) 200 mg PO BID DURAN Stop: 12/21/22 20:59 Last Admin: 11/22/22 08:42 Dose: 200 mg Magnesium Hydroxide (Magnesium Hydroxide Susp 30 Ml Udc) 30 ml PO DAILY PRN PRN Reason: Constipation Stop: 12/21/22 15:25 Sodium Chloride (Sodium Chloride 0.65% Na Soln 45 Ml ([place])) 1 - 2 sprays NA PRN PRN PRN Reason: Nasal Dryness/Congestion Stop: 12/21/22 15:25
[2022-11-22] MEDS ORDERED: SUMAtriptan succinate 25 MG TAB PO PRN (12:15)
[2022-11-22] MEDS: ESCITALOPRAM OXALATE 10 MG TAB PO SCH (13:20)
--- NOTE | 2022-11-23 08:49 | Psychiatric Progress Note ---
Date of Service November 23, 2022 Impression / Recommendations Nancy Lira is a 22 year old woman and [employer] student with a history of BPAD, OCD, NOHEMY and depression who was admitted for worsening depression, visual hallucinations and SI with plan of overdosing. Diagnostically consistent with bipolar affective disorder, current depressive episode as well as OCD and NOHEMY by history, possible cannabis use vs migraines contributing to visual hallucinations. She will have outpatient testing this spring for possibility of processing issues and testing for autism spectrum disorder. The patient is deemed in need of psychiatric hospitalization for diagnostic clarification, safety and stabilization, medication management and development of further coping skills. MNPR due to sensory issues, severe OCD 11/23/2022: Mood improving today, no SI. No signs of mixed episode or transition i nto hypomania/kendal. Suspect mood improving with knowledge of dropped legal charges and feeling well supported by friends, bf and family. Discussed with her outpatient psychiatric provider Babita Lockhart via telephone. (1) Bipolar affective disorder, depressed, severe: (2) Obsessive-compulsive disorder with good or fair insight: (3) Generalized anxiety disorder with panic attacks: (4) Visual hallucinations: Plan 11/23/2022: Continue current medications and tx plan. 11/22/2022: The patient was admitted to the [facility] on q15 min checks (behavioral with suicide precautions) for safety. The patient will participate in group, recreational, and milieu therapies and will be offered additional individual and family sessions as clinically appropriate. -Continue lexapro, lamictal and Buspar -Mood Disorder Questionnaire -Will reach out to Babita Lockhart for coordination of care Inventory Assets Strengths: supportive relationships, willing to get treatment, outpatient providers, resilient Needs: safety and stabilization, medication adjustment, additional coping skills, increased outpatient services Suicide Risk Level Suicide Risk Level: Moderate (q15 min suicide checks) (severe depression with SI with plan prior to admission but mood improving, denies SI today and feels safe in the hospital, able to safety contract and agrees to let nursing/staff know should they develop plan, intent or feel unable to remain safe.) Suicide Risk Level Comments: Risk Factors Assessment Male: No : No Do You Have Access To A Gun?: No Health Problems: No Mental Health Diagnoses: Yes Substance Use Disorders: No Previous Attempt: No Family History of Suicide: No Previous Psychiatric Hospitalization: No Protective Factors Assessment Employed: No Stable Relationships: Yes Supportive Family: Yes Good Rapport with Provider: Yes Interval History Identifying Information WADE BRIAN is a 22-year-old woman and [employer] student who currently lives in [place] alone in an apartment, has a history of BPAD II, OCD, anxiety, and was admitted on 11/21/22 15:27 on a 201 voluntary commitment for worsening depression and SI to overdose or wreck her car. Chief Complaint "I'm really good, I feel so much better". Review of Systems Sleep Information Total Hours of Sleep: 7 Meal Information Percent Meal Consumed - Breakfast: 0 Percent Meal Consumed - Lunch: 100 Percent Meal Consumed - Dinner: 50 Subjective Subjective Patient was seen & assessed and interval progress reviewed with treatment team nursing and social work. Attending groups. Very tearful after talking with her therapist last night. Legal charges were dropped. Today her mood is much better, denies SI. Has been reading books and talking with her mom and boyfriend. Feels that working on coping skills has been very helpful. Likes her medications as they are. Able to concentrate on reading books. No visual hallucinations. Physical Exam Psychiatric Orientation: alert and oriented x 3 Apperance: appropriately dressed and appropriately groomed Eye Contact: good eye contact Motor Behavior: no abnormal motor movements Speech: normal rate/rhythm/volume of speech Affect: euthymic affect Mood: + anxious mood Thought Process: goal directed thought process Thought Content: reality based without delusions Suicidal Thoughts: denies suicidal thoughts, denies suicidal plan and denies suicidal intent Homicidal Thoughts: denies homicidal thoughts Hallucinations: no auditory hallucinations and no visual hallucinations Cognition: recent memory grossly intact, remote memory grossly intact, attention grossly intact and language grossly intact Estimated Intelligence: consistent with education level Insight: + fair insight Judgment: + fair judgement Vital Signs (Past 24 Hours) Last Vital Signs Temp 36.8 C 11/23/22 06:42 Pulse 97 H 11/23/22 06:42 Resp 18 11/23/22 06:42 BP 134/83 11/23/22 06:42 Pulse Ox 98 11/21/22 12:17 O2 Del Method 11/21/22 16:48 Results & Data ([facility]) Current Inpatient Medications Current Inpatient Medications: Current Inpatient Medications Acetaminophen (Acetaminophen 325 Mg Tab) 650 mg PO Q4H PRN PRN Reason: Headache or Minor Fever Stop: 12/21/22 15:25 Al Hydrox/Mg Hydrox/Simethicone (Aluminum/Magnesium Susp 30 Ml Udc) 30 ml PO Q4H PRN PRN Reason: GI Upset Stop: 12/21/22 15:25 Last Admin: 11/22/22 15:42 Dose: 30 ml Bismuth Subsalicylate (Bismuth Subsalicylate Liqd 236 Ml) 15 ml PO PRN PRN PRN Reason: Loose Stool Stop: 12/21/22 15:25 Buspirone HCl (Buspirone 15 Mg Tab) 30 mg PO BID [facility] Stop: 12/21/22 20:59 Last Admin: 11/22/22 21:04 Dose: 30 mg Escitalopram Oxalate (Escitalopram Oxalate 10 Mg Tab) 10 mg PO QAM [facility] Stop: 12/22/22 12:14 Last Admin: 11/22/22 13:20 Dose: 10 mg Hydroxyzine HCl (Hydroxyzine Hcl 25 Mg Tab) 50 mg PO HSZ PRN PRN Reason: Insomnia Stop: 12/21/22 15:25 Hydroxyzine HCl (Hydroxyzine Hcl 25 Mg Tab) 25 mg PO Q4H PRN PRN Reason: Anxiety Stop: 12/21/22 15:25 Lamotrigine (Lamotrigine 100 Mg Tab) 200 mg PO BID [facility] Stop: 12/21/22 20:59 Last Admin: 11/22/22 21:05 Dose: 200 mg Magnesium Hydroxide (Magnesium Hydroxide Susp 30 Ml Udc) 30 ml PO DAILY PRN PRN Reason: Constipation Stop: 12/21/22 15:25 Sodium Chloride (Sodium Chloride 0.65% Na Soln 45 Ml ([place])) 1 - 2 sprays NA PRN PRN PRN Reason: Nasal Dryness/Congestion Stop: 12/21/22 15:25 Sumatriptan Succinate (Sumatriptan Succinate 25 Mg Tab) 25 mg PO Q2H PRN PRN Reason: Migraine Headache Stop: 12/22/22 12:14 Last Admin: 11/22/22 13:23 Dose: 25 mg Mental Health & Subst Abuse Tx Psychiatrist Name of Psychiatrist: Ortega Lockhart Psychiatrist's Date Of Appointment With Psychiatric Provider: 12/14/22 Time of Appointment with Psychiatrist: 11:00 AM Psychiatric Appointment Comment: [address], [address], [place] [address] Therapist Name of Therapist: Ortega Reed Therapist's Date of Therapist Appointment: 11/29/22 Time of Therapist Appointment: 2:00 PM Therapy Appointment Comment: [address], [facility] [address], [place] [address]
[2022-11-23] MEDS: busPIRone 15 MG TAB PO SCH ×2 (09:39→20:27)
[2022-11-23] MEDS: lamoTRIgine 100 MG TAB PO SCH ×2 (09:39→20:26)
[2022-11-23] MEDS: ESCITALOPRAM OXALATE 10 MG TAB PO SCH (09:39)
[2022-11-24] MEDS: busPIRone 15 MG TAB PO SCH (09:09)
[2022-11-24] MEDS: ESCITALOPRAM OXALATE 10 MG TAB PO SCH (09:09)
[2022-11-24] MEDS: lamoTRIgine 100 MG TAB PO SCH (09:09)
[2022-11-24 09:51] LABS: Marijuana Quant, GCMS Urine 130 ng/mL (<5)
--- NOTE | 2022-11-24 10:55 | Discharge Summary ---
Date of Service November 24, 2022 History of Present Illness She presents for psychiatric admission for worsening depression and SI with plans of overdosing in the context of multiple psychosocial stressors including legal hearing, "focusing on being normal" takes up a lot of her stress and time. She had been doing well but about one month ago got more depressed and then started to see visual hallucinations this past week and this was really upsetting as her mood spiraled into depression "so quickly" and that this is a "really sad setback". Has been feeling very hopeless. She feels she is always at a high level of anxiety with ruminations and her OCD makes her easily get overstimulating and can cause her to focus on things needing to be "just right". She has chronic stomach pain which she attributes to anxiety. She's doing well academically but course work can be stressful. She feels like before a manic or depressive spell she often sees things in the corner of her vision and in the past heard country music on repeat as an auditory hallucination prior to a manic episode. She hasn't noticed any correlation with her migraines. History of trauma but no PTSD symptoms. Further recent history reviewed and confirmed as documented by ED psych CM on 11/21/22: "The patient presents with suicidal ideation with a plan to overdose on her medications (which she reports she is compliant with taking). She isnt able to identify any new stressors other that school, which has been going well for her. The patient reports depressive symptoms of anergia, anhedonia, crying spells and disturbance in sleep (reports 8-9 hours per night but awakens during the night and she identifies this as a sign her mental health has been worsening). The patient reports a history of eating disorder and is currently receiving therapy for this through Alethea Reed at [facility] (which also manages her medications by Babita Lockhart). The patient denies any manic symptoms and feels this is under control and that she is in more of a depressive state at this time (history of Bipolar, OCD, PTSD and anxiety). The patient reports less often than daily anxiety / panic attacks that can be crippling, where she needs to lie on the floor to ground herself (currently at 9 in the ER). The patient reports she has been having visual hallucinations of objects in her peripheral vision but denies any other hallucinations or paranoid thinking. The patient is not a smoker and admits to daily marijuana use but denies other drug use, aggressive behaviors, homicidal ideations or access to weapons. The patient is willing for treatment at this time and medical clearance was explained. Patient arrived by [facility] and report received from Gennaro (Armored Car Guard And Driver). He reports the patient called [facility] reporting she had suicidal ideations with a plan to overdose on her medications. Gennaro reports upon their arrival, the patient was sitting in her car to keep herself safe since her medications were in the residence. Gennaro reports the patient reported feeling down and crying uncontrollably recently with diagnoses of Bipolar, OCD and anxiety. He finally reports the patient sees a therapist weekly but has never been inpatient for mental health treatment." She is currently prescribed psychiatric medications of lexapro 10mg qd (about 4 months to help with anxiety and this has helped), Buspar 30mg BID (helps with anxiety), Lamictal 200mg BID (for about one year). History of multiple prior episodes of kendal, most recently January 2022 lasting about 4 days, prior to that had episode of kendal that lasted almost 3 months. Physical Exam Vital Signs (Past 24 Hours) Last Vital Signs Temp 36.9 C 11/24/22 06:33 Pulse 91 H 11/24/22 06:34 Resp 16 11/24/22 06:33 BP 109/77 11/24/22 06:34 Pulse Ox 98 11/21/22 12:17 O2 Del Method 11/21/22 16:48 See admission H&P and DOD summary. Principal Diagnosis Bipolar affective disorder current depressive disorder Psychiatric Data See daily stay summary. In short, patient was engaged with the social/therapeutic milieu of the unit, safety was maintained and the patient was cooperative with care. There were no medication changes. A family session was held and safety plan was completed prior to discharge. She actively and insightfully participated in safety planning and in discussions about ways to seek support and recognizing warning signs and utilizing coping skills. Reviewed mobile apps that could be used for additional ways to have their safety plan and contacts easily available should thoughts of SI re-emerge in the future. Reviewed importance of seeking emergency care should SI intensify, worsen or should they feel unsafe in the future which they agree to do. On the day of discharge she stated her mood was "really good and my family call went really well" and remained future-oriented including going to lunch with her grandma, getting back to class, going to [place] next week and engaging in aftercare appointments for psychiatry, therapy and [employer] student care and advocacy. Day of Discharge Assessment Today the patient voices readiness for discharge. They note improvement in mood and anxiety. They deny thoughts of harm to self or others. Thoughts remain organized and they are clinically improved from admission. There is no evidence of psychosis. They improved in the hospital with support. They agree to take medications as prescribed and keep follow-up appointments. At the time of the discharge they are deemed to be stable and appropriate for outpatient level of care. They are not deemed to be at imminent risk of harm to self or others. They are aware of emergency and crisis services. Knows to call 911 or go to nearest emergency care center if in a crisis which cannot be handled as an outpatient. Transition of Care Transition Of Care Record: was reviewed with the patient Advance Directives Advance Directives Information Provided: Yes Advance Directives: No Mental Health Advance Directive: No Advance Directives on File: No Living Will: No Power of Forming Machine Upkeep Mechanic Helper: No Advance Directives Reason:: Declines as Mental Health Visit. Suicide Risk Level Suicide Risk Level Comments: Acute risk is low given improvement in mood and denial of SI, lack of access to lethal means, legal charges dropped, improvement in sleep, hopefulness, lessening of anxiety. Chronic risk is low given few non-modifiable risk factors: psychiatric co-morbid diagnoses, periods of impulsivity, emotional reactivity, and also with many protective factors including: employed/student, good social support, sense of responsibility to family and social supports, outpatient care in place, positive coping skills, positive problem solving, capacity to establish therapeutic alliance, willingness to engage with treatment, capacity for self-observation. Counseled on ways to reduce acute and chronic risk including engaging with outpatient providers, using safety plan if needed, utilizing supports, taking medication, and using coping skills. Modifiable risk factors of SI and depression were addressed during hospitalization through development of new coping skills, family meeting, and safety planning. Risk Factors Assessment Male: No : No Do You Have Access To A Gun?: No Health Problems: No Mental Health Diagnoses: Yes Substance Use Disorders: No Previous Attempt: No Family History of Suicide: No Previous Psychiatric Hospitalization: No Hopelessness: No Protective Factors Assessment Employed: Yes Stable Relationships: Yes Supportive Family: Yes Good Rapport with Provider: Yes Discharge Data Lab Results 11/21/22 11/21/22 11/21/22 12:20 12:20 12:20 WBC 9.16 RBC 4.76 Hgb 13.8 Hct 41.8 MCV 87.8 MCH 29.0 MCHC 33.0 RDW Std Deviation 41.9 RDW Coeff of Brissa 12.9 Plt Count 283 MPV 10.0 Immature Gran % (Auto) 0.3 Neut % (Auto) 72.5 Lymph % (Auto) 19.1 Corson % (Auto) 6.8 Eos % (Auto) 0.9 Baso % (Auto) 0.4 Neut # (Auto) 6.64 H Lymph # (Auto) 1.75 Corson # (Auto) 0.62 H Eos # (Auto) 0.08 Baso # (Auto) 0.04 Immature Gran # (Auto) 0.03 Sodium 140 Potassium 3.6 Chloride 106 Carbon Dioxide 28 Anion Gap 6 BUN 8 Creatinine 0.71 Est Cr Clr Drug Dosing 100.9 Est GFR ( Amer) 140.1 Est GFR (Non-Af Amer) 120.9 BUN/Creatinine Ratio 11.3 Glucose 81 Calcium 9.8 Total Bilirubin 0.8 AST 18 ALT 11 Alkaline Phosphatase 66 Total Protein 8.3 Albumin 4.8 Globulin 3.5 Albumin/Globulin Ratio 1.4 TSH 2.232 Urine Color Urine Appearance Urine pH Ur Specific [place] Urine Protein Urine Glucose (UA) Urine Ketones Urine Blood Urine Nitrite Urine Bilirubin Urine Urobilinogen Ur Leukocyte Esterase Urine WBC (Auto) Urine RBC (Auto) U Hyaline Cast (Auto) U Epithel Cells (Auto) Urine Bacteria (Auto) Urine Test Salicylates Urine Opiates Screen Ur Methadone, Qual Acetaminophen Urine Barbiturates Ur Phencyclidine (PCP) U Amphetamin/Meth Scrn MDMA (Ecstasy) Screen U Benzodiazepines Scrn Ur Cocaine Metabolite U Marijuana (THC) Screen U Marijuana THC Carboxy Drug Screen Comment Ethyl Alcohol mg/dL SARS-CoV-2, RNA, NAAT 11/21/22 11/21/22 11/21/22 12:20 12:20 12:20 WBC RBC Hgb Hct MCV MCH MCHC RDW Std Deviation RDW Coeff of Brissa Plt Count MPV Immature Gran % (Auto) Neut % (Auto) Lymph % (Auto) Cors[place] % (Auto) Eos % (Auto) Baso % (Auto) Neut # (Auto) Lymph # (Auto) Cors[place] # (Auto) Eos # (Auto) Baso # (Auto) Immature Gran # (Auto) Sodium Potassium Chloride Carbon Dioxide Anion Gap BUN Creatinine Est Cr Clr Drug Dosing Est GFR ( Amer) Est GFR (Non-Af Amer) BUN/Creatinine Ratio Glucose Calcium Total Bilirubin AST ALT Alkaline Phosphatase Total Protein Albumin Globulin Albumin/Globulin Ratio TSH Urine Color Yellow Urine Appearance Clear Urine pH 8.0 H Ur Specific [place] 1.007 Urine Protein Negative Urine Glucose (UA) Negative Urine Ketones Negative Urine Blood Trace H Urine Nitrite Negative Urine Bilirubin Negative Urine Urobilinogen Negative Ur Leukocyte Esterase Trace H Urine WBC (Auto) 1-5 Urine RBC (Auto) 0-4 U Hyaline Cast (Auto) 1-5 U Epithel Cells (Auto) >30 H Urine Bacteria (Auto) 1+ H Urine Test Salicylates < 3.0 L Urine Opiates Screen Ur Methadone, Qual Acetaminophen < 3 L Urine Barbiturates Ur Phencyclidine (PCP) U Amphetamin/Meth Scrn MDMA (Ecstasy) Screen U Benzodiazepines Scrn Ur Cocaine Metabolite U Marijuana (THC) Screen U Marijuana THC Carboxy Drug Screen Comment Ethyl Alcohol mg/dL < 10.0 SARS-CoV-2, RNA, NAAT 11/21/22 11/21/22 11/21/22 12:20 12:20 12:20 WBC RBC Hgb Hct MCV MCH MCHC RDW Std Deviation RDW Coeff of Brissa Plt Count MPV Immature Gran % (Auto) Neut % (Auto) Lymph % (Auto) [place] % (Auto) Eos % (Auto) Baso % (Auto) Neut # (Auto) Lymph # (Auto) [place] # (Auto) Eos # (Auto) Baso # (Auto) Immature Gran # (Auto) Sodium Potassium Chloride Carbon Dioxide Anion Gap BUN Creatinine Est Cr Clr Drug Dosing Est GFR ( Amer) Est GFR (Non-Af Amer) BUN/Creatinine Ratio Glucose Calcium Total Bilirubin AST ALT Alkaline Phosphatase Total Protein Albumin Globulin Albumin/Globulin Ratio TSH Urine Color Urine Appearance Urine pH Ur Specific [place] Urine Protein Urine Glucose (UA) Urine Ketones Urine Blood Urine Nitrite Urine Bilirubin Urine Urobilinogen Ur Leukocyte Esterase Urine WBC (Auto) Urine RBC (Auto) U Hyaline Cast (Auto) U Epithel Cells (Auto) Urine Bacteria (Auto) Urine Test Negative Salicylates Urine Opiates Screen Neg Ur Methadone, Qual Neg Acetaminophen Urine Barbiturates Neg Ur Phencyclidine (PCP) Neg U Amphetamin/Meth Scrn Neg MDMA (Ecstasy) Screen Neg U Benzodiazepines Scrn Neg Ur Cocaine Metabolite Neg U Marijuana (THC) Screen Pos H U Marijuana THC Carboxy 130 H Drug Screen Comment SEE NOTE Ethyl Alcohol mg/dL SARS-CoV-2, RNA, NAAT 11/21/22 12:31 WBC RBC Hgb Hct MCV MCH MCHC RDW Std Deviation RDW Coeff of Brissa Plt Count MPV Immature Gran % (Auto) Neut % (Auto) Lymph % (Auto) [place] % (Auto) Eos % (Auto) Baso % (Auto) Neut # (Auto) Lymph # (Auto) [place] # (Auto) Eos # (Auto) Baso # (Auto) Immature Gran # (Auto) Sodium Potassium Chloride Carbon Dioxide Anion Gap BUN Creatinine Est Cr Clr Drug Dosing Est GFR ( Amer) Est GFR (Non-Af Amer) BUN/Creatinine Ratio Glucose Calcium Total Bilirubin AST ALT Alkaline Phosphatase Total Protein Albumin Globulin Albumin/Globulin Ratio TSH Urine Color Urine Appearance Urine pH Ur Specific [place] Urine Protein Urine Glucose (UA) Urine Ketones Urine Blood Urine Nitrite Urine Bilirubin Urine Urobilinogen Ur Leukocyte Esterase Urine WBC (Auto) Urine RBC (Auto) U Hyaline Cast (Auto) U Epithel Cells (Auto) Urine Bacteria (Auto) Urine Test Salicylates Urine Opiates Screen Ur Methadone, Qual Acetaminophen Urine Barbiturates Ur Phencyclidine (PCP) U Amphetamin/Meth Scrn MDMA (Ecstasy) Screen U Benzodiazepines Scrn Ur Cocaine Metabolite U Marijuana (THC) Screen U Marijuana THC Carboxy Drug Screen Comment Ethyl Alcohol mg/dL SARS-CoV-2, RNA, NAAT NEGATIVE Hospital Course (1) Bipolar affective disorder, depressed, severe: (2) Obsessive-compulsive disorder with good or fair insight: (3) Generalized anxiety disorder with panic attacks: (4) Visual hallucinations: Plan 11/23/2022: Continue current medications and tx plan. 11/22/2022: The patient was admitted to the [facility] ([facility] health unit) on q15 min checks (behavioral with suicide precautions) for safety. The patient will participate in group, recreational, and milieu therapies and will be offered additional individual and family sessions as clinically appropriate. -Continue lexapro, lamictal and Buspar -Mood Disorder Questionnaire -Will reach out to Babita Lockhart for coordination of care Mental Health & Subst Abuse Tx Psychiatrist Name of Psychiatrist: Ortega Lockhart Psychiatrist's Date Of Appointment With Psychiatric Provider: 12/14/22 Time of Appointment with Psychiatrist: 11:00 AM Psychiatric Appointment Comment: [address] [facility], [facility] [address], [place] [address] Psychiatrist Release of Information: Obtained, Reviewed and Signed Therapist Name of Therapist: Ortega Reed Therapist's Date of Therapist Appointment: 11/29/22 Time of Therapist Appointment: 2:00 PM Therapy Appointment Comment: [address], [facility] [address], [place] [address] Therapist Release of Information: Obtained, Reviewed and Signed Butter Production Supervisor Name of Butter Production Supervisor: Student Care and Advocacy - Kim Jack Phone Number for Butter Production Supervisor: [phone] Date of Appointment with Butter Production Supervisor: 11/27/22 Time of Appointment with Butter Production Supervisor: 11:15 AM Case Management Appointment Comment: Please check your [employer] email for meeting link. Post Discharge Appointments Primary Care Physician Name Of Family Doctor/PCP: [facility] Time of Appointment with PCP: Follow up as needed. Provider Appointment Comment: [facility] Contact Information Discharge Discharge Address: [address] [place] [address] Discharge Plan Discharge Items Patient Disposition: Home - Self-Care Reason For Visit: SUICIDAL IDEATION Discharge Diagnosis: Bipolar Affective Disorder current episode of depression Activity: Resume your previous activity Non-emergency contact: Primary Care Provider, Psychiatrist and Therapist Call non-emergency contact if: you have any medication questions and your symptoms worsen Follow-up/Referrals: Daniella Poon [Primary Care Provider] - Diet: Regular Addtl Attending Provider Instructions: Optional mobile apps we discussed: -Suicide safety plan -Virtual Hope Box -Panic Marble Polisher Hand SPECIAL CARE INSTRUCTIONS: 1. Follow through with your scheduled aftercare appointments. If unable to keep an appointment, please call to reschedule. 2. Take your medication only as prescribed. Medication should not be changed or stopped without the approval of your doctor. In the event of worsening symptoms or concerns about side effects, contact your doctor immediately. 3. Utilize new healthy coping skills, anger management skills, and stress management skills learned during your hospitalization. Journal feelings and process them with a support person. Identify stressors or situations that may result in relapse, deterioration or inappropriate behaviors and develop a plan to deal with those issues. 4. If your coping skills are ineffective and you are in crisis, contact your outpatient providers for direction. If unable to reach your providers, please call the [facility] CRISIS LINE AT , go to the [facility] walk-in center at [address] [facility] [facility], [address], [place], or go to the closest Emergency Room. 5. Avoid alcohol and un-prescribed drugs. 6. You have been provided with the Mental Health Advance Directives Pamphlet for your review. 7. Your condition is stable for discharge to outpatient level of care, but recovery is an ongoing process. Ifthoughts to harm yourself or others return, follow the safety plan developed during your stay. Planning for a safe return home includes securing weapons. Our treatment team recommends weaponsbe removed from the home until your outpatient provider reassesses your progress. In rare cases where the items themselvescannot be removed, guns and ammunitionshould be secured separatelyand keys stored by a reliable personoutside of the home. If you were admitted on an involuntary commitment, the police or other legal authorities may be involved in this process. AFTERCARE APPOINTMENTS: * Please call your insurance company prior to your scheduled appointment to confirm your aftercare providers are covered. Take your insurance information to your appointments. WHO TO CALL AND WHEN: Medical Emergencies: For questions or emergencies related to your hospital stay, please contact the Inpatient Behavioral Health Unit at [phone]. A home therapy clinician is on-call 07/05 for the Behavioral Health Unit for emergencies At any time you feel your situation is an emergency, you may also call 911 immediately. Pending Studies at Discharge: No Stand-Alone Forms: [facility] Medications and DC Order Prescriptions: New buspirone 30 mg tablet 30 mg PO BID 30 Days Qty: 60 0RF Continued sumatriptan succinate [Imitrex] 25 mg tablet 25 mg PO Q2H PRN (Reason: Migraine Headache) Rx Instructions: do not exceed 8 doses per 24 hrs Kyleena 17.5 mcg/24 hrs (5 yrs) 19.5 mg intrauterine device 17.5 mcg intrauterine CONTINOUS lamotrigine 200 mg tablet 200 mg PO BID Lexapro 10 mg PO DAILY Discontinued buspirone 30 mg tablet 30 mg PO BID Discharge Orders: Discharge Order (Routine); Ordered 11/24/22 Ordered By: Mel Jaramillo Admission Data Admit Date/Time: 11/21/22 15:27 Attending Provider: Mel Jaramillo Admit Provider: Mel Jaramillo Primary Care Provider: Daniella Poon Other Interventions: Discharge Summary Assessment (RN) Last Done: 11/24/22 11:11 PSY Interdisciplinary Discharge Planning Last Done: 11/24/22 11:11 Coding Level of Care Code 88298 D/C day mgmt > 30 min Diagnoses Bipolar affective disorder, depressed, severe F31.4 Obsessive-compulsive disorder with good or fair insight F42.9 Generalized anxiety disorder with panic attacks F41.1; F41.0 Visual hallucinations R44.1 Time Spent (min) 35
== END 2022-11-24 11:26 | disposition home or self-care (01) | DRG 885 ==
LOC: ED 12:01 → 3S 15:27